=== PATIENT | male | born 1950 | race Caucasian/White ===

== ENCOUNTER → 2017-02-21 | Outpatient (CLI) | payer OTHER ==
[~2017-02-21] MED LIST: ANDROGEL75 GM TD; CALCIUM600 MG PO; CARBIDOPA/LEVO1 EACH PO; CLONAZEPAM1 MG PO; CORDARONE200 MG PO; COUMADIN4 MG PO; CRESTOR10 MG PO; Cordarone, Pacerone PO; Coumadin,Jantoven PO; DUONEB 2.5-0.5 M3 ML IH; DuoNeb IH; FLEXERIL10 MG PO; FLONASE16 G1 BOTH NARES; Flomax PO; Flonase BOTH NARES; Inderal LA PO; K-TAB10 MEQ PO; KENALOG,ARISTOC80 GM TP; KLONOPIN1 MG PO; Kenalog 0.1% Cream TP; LASIX40 MG PO; LORTAB 5-500 T1 EAC1 PO; LYRICA300 MG PO; LYRICA75 MG PO; Lasix PO; MEGA BIOTIN10000 MCG PO; METOPROLOL SUCC50 MG PO; MOBIC15 MG; MULTIVITAMIN1 EAC1 PO; MYSOLINE250 MG PO; Mobic PO; Mysoline PO; NUCYNTA ER200 MG PO; NUCYNTA100 MG PO; Nucynta PO; POTASSIUM CHLORIDE E PO; Proventil,Ventolin H IH; SPIRIVA1 INHALATI IH; SUPER B COMPLE1 EAC1 PO; TEMOVATE 0.05%15 G1 TP; TRIHEXYPHENIDYL2 MG PO; VENTOLIN HFA18 GM IH; VITAMIN A8000 UNIT PO; VITAMIN D400 UNI1 PO; VITAMIN E1000 UNI1 PO; WARFARIN SODIUM10 MG PO; WARFARIN SODIUM3 MG PO; ZANAFLEX6 MG PO; ZESTRIL5 MG PO; Zestril,Prinivil PO; Zithromax PO; predniSONE PO
== END | disposition home or self-care (01) ==
DX: R13.11 Dysphagia, oral phase (principal); R13.13 Dysphagia, pharyngeal phase; J38.01 Paralysis of vocal cords and larynx, unilateral; Z86.73 Personal history of transient ischemic attack (TIA), and cerebral infarction without residual deficits
CPT/HCPCS: 92611 GN; G8996 GN; G8997 GN; G8998 GN